=== PATIENT | female | born 1970 | race African-American/Black ===

== ENCOUNTER → 2020-04-19 | Outpatient (CLI) | payer OTHER, MEDICAID ==
[2016-05-22 14:51] VITALS: BP 154/90
[~2020-04-19] MED LIST: POTASSIUM CHLO10 ME1 PO
--- NOTE | 2020-04-19 12:24 | KCIC ---
STUDY: MRI of the right knee without contrast INDICATION: Right knee pain. COMPARISON: None. TECHNIQUE: Multiplanar MR imaging of the right knee performed without the use of intravenous or intra-articular contrast. FINDINGS: Menisci: Intact. Cruciate ligaments: Intact. Collateral ligaments: Intact. Tendons: Unremarkable extensor complex. The additional tendons at the knee are normal. 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 Possible superimposed chondral delamination extending away from the median ridge per the axial T2 sequence but this is difficult to differentiate from artifact. Partial thickness chondrosis along the trochlear groove. Chondral loss at the lower margin of the medial trochlea. The lateral trochlear cartilage appears intact. Lateral compartment: Intact. Medial compartment: Partial thickness chondrosis of the weightbearing medial femoral condyle, image 14 series 7. Bones: No acute fracture or aggressive marrow signal abnormality. Miscellaneous: Normal volume knee joint fluid. Unremarkable popliteal fossa soft tissues. Normal TT-TG distance measuring 1.1 cm. Trace edema-like signal at the superolateral aspect of Hoffa's fat, image 18 series 6. IMPRESSION: 1. Intact menisci, cruciate ligaments and collateral ligaments. 2. 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 3. Trace edema-like signal at the superolateral aspect of Hoffa's fat however this is of questionable significance given a normal TT-TG distance. Electronically signed by: BLAKE SCHUMACHER MD (04/19/2020 12:21 PM) [id number]
== END | disposition home or self-care (01) ==
LOC: KCIC MRI 08:37
PROVIDERS: ATTEND Family Medicine
DX: M25.561 Pain in right knee (principal)
CPT/HCPCS: 73721